=== PATIENT | male | born 1975 | race Caucasian/White ===

== ENCOUNTER 2018-08-21 18:08 | Inpatient (IN) ==
[2018-08-21] MEDS ORDERED: 0.9 % Sodium Chloride 1,000 ML IVC ONE (18:45)
[2018-08-21] MEDS ORDERED: *HR* FentaNYL (PF) 100 MCG/2 ML VIAL IVP ONE ×2 (18:47→22:55)
[2018-08-21] MEDS ORDERED: Ondansetron ODT 4 MG TAB.RAPDIS SL ONE (18:47)
--- NOTE | 2018-08-21 18:53 | Emergency Department Note ---
Addendum entered and electronically signed by Marlon Jiang DO 08/22/18 01:57: I examined this patient and my medical decision-making was reviewed with the Abhishek mitchell Physician. I agree with the documented findings, disposition and treatment plan as described except to the extent set forth below. Findings consistent with chronic pancreatitis. Suspect underlying etiology as triglyceridemia. Patient will be admitted for triglyceride management, pain con trol. IV fluids were established. Original Note: Disposition Clinical Impression: Abdominal pain Qualifiers: Abdominal location: right upper quadrant Qualified Code(s): R10.11 - Right upper quadrant pain Disposition: Still a Patient Condition: Fair Forms: ED Satisfaction Letter, Work/School Release General Adult HPI - General Chief complaint: ED Abdominal Pain Stated complaint: pancreatitis Time Seen by Provider: 08/21/18 18:37 Source: patient, family Limitations: no limitations Nursing Notes Reviewed: Yes Vital Signs Reviewed: Yes - History of Present Illness HPI Narrative: Patient is a 42-year-old male presenting to [facility] ED for a 5 hour history of severe abdominal pain radiating to the back and chest. Patient states that he has had similar episodes in the past which were attributed to pancreatitis which led to a cholecystectomy 6 months ago. Patient states that he has hypertriglyceridemia of over 580 for which he began taking fenofibrate this week. Patient states that his pain is 10 out of 10 and sharp and stabbing in nature. Patient states that he feels extremely nauseated. Onset (ago): hour(s) Location: abdomen Radiation: other (Radiation to the chest and right side of back) Pain Severity: severe Pain Scale: 10 Quality: stabbing, sharp Consistency: constant Improves with: nothing Worsens with: nothing Associated symptoms: Reports: chest pain, cough, fever/chills, nausea/vomiting. Denies: headaches, shortness of breath - Related Data Allergies Allergy/AdvReac Type Severity Reaction Status Date / Time prochlorperazine Allergy See Verified 08/21/18 18:25 [From Compazine] Comments All systems ED: reviewed and negative except as stated. Review of Systems: As Per HPI Constitutional: Reports: fever, chills Eyes: Denies: vision change ENT ED: Denies: throat pain, dysphagia Cardiovascular: Denies: chest pain Respiratory: Denies: dyspnea Gastrointestinal: Reports: abdominal pain, nausea. Denies: vomiting, hematochezia Genitourinary: Denies: hematuria Musculoskeletal: Reports: back pain Neurological: Denies: headache, numbness, paresthesias Physical Exam - General Limitations: no limitations General appearance: alert, in distress - Head Head exam: atraumatic, normocephalic, normal inspection - Eye Eye exam: Present: normal appearance, PERRL, EOMI. Absent: scleral icterus, conjunctival injection - Chest Chest inspection: Present: normal inspection, symmetric chest wall rise - Respiratory Respiratory exam: Present: normal lung sounds bilaterally. Absent: respiratory distress, wheezes, stridor, accessory muscle use, prolonged expiratory phase - Cardiovascular Cardiovascular exam: Present: regular rate, normal rhythm, normal heart sounds, +S1, +S2. Absent: JVD, +S3, +S4 - Abdominal Exam Abdominal exam: Present: soft, tenderness, normal bowel sounds. Absent: distention, guarding, rebound, rigidity Abdominal tenderness: Present: RUQ, severe - Back Exam Back exam: Present: normal inspection, tenderness, CVA tenderness (R). Absent: CVA tenderness (L) - Neurological Exam Neurological exam: Present: alert, oriented X3 - Psychiatric Psychiatric exam: Present: anxious - Skin Skin exam: Present: warm, intact, normal color, diaphoresis. Absent: cyanosis Course Course Narrative: Patient history, review of systems, physical exam is concerning for abdominal pathology versus cardiac pulmonary process. EKG/old EKG, chest x-ray, CT abdomen and pelvis as well as abdominal labs will be performed to assess for potential underlying pathology. -Patient will be given 8 mg Zofran ODT, 50 g of fentanyl, and 1 L of fluids for the management of symptoms. Vital Signs Temperature 97.6 F 08/21/18 18:24 Pulse Rate 67 08/21/18 18:24 Respiratory Rate 18 08/21/18 18:24 Blood Pressure 146/88 08/21/18 18:24 O2 Sat by Pulse Oximetry 96 08/21/18 18:24 Temperature 97.6 F 08/21/18 18:24 Pulse Rate 67 08/21/18 18:24 Respiratory Rate 18 08/21/18 18:24 Blood Pressure 146/88 08/21/18 18:24 O2 Sat by Pulse Oximetry 96 08/21/18 18:24 Oxygen Delivery Oxygen Delivery Room Air Medical Decision Making - MDM Narrative Medical decision making narrative: Patient will be transferred to the care of overnight ED physician staff. Patient is hemodynamically stable at the time of transfer. - Lab Data Result diagrams: 08/21/18 19:05 08/21/18 19:05
[2018-08-21 19:23] LABS: Basophils % 0.5 %; Eosinophils # 0.4 K/mcL (0.0-0.6); Eosinophils % 4.8 %; Hematocrit 46.7 % (37.5-50.1); Hemoglobin 15.9 g/dL (12.9-16.9); Immature Granulocytes % 0.6 % (0-4); Lymphocytes # 1.8 K/mcL (0.6-4.6); Mean Corpuscular Hemoglobin 28.9 pg (28.0-33.3); Mean Corpuscular Volume 84.8 fL (83.0-100.0); Mean Platelet Volume 10.4 fL (9.4-12.4); Monocytes # 0.7 K/mcL (0.0-1.3); Monocytes % 8.5 %; Neutrophils # 5.4 K/mcL (1.6-8.9); Platelet Count 216 K/mcL (140-400); Red Blood Count 5.51 M/mcL (4.19-5.50); Red Cell Distribution Width 13.2 % (11.5-14.5); Segmented Neutrophils % 64.6 %
[2018-08-21 19:32] LABS: Bilirubin,Urine Negative (Negative); Blood,Urine Negative (Negative); Clarity,Urine Clear (Clear); Color,Urine Yellow (Yellow); Glucose,Urine (UA) Normal (Normal); Ketones,Urine Negative (Negative); Leukocyte Esterase,Urine Negative (Negative); Nitrite,Urine Negative (Negative); PH,Urine 6.5 pH Units (5.0-8.0); Protein,Urine Negative (Neg-Trace); Specific Gravity,Urine 1.019 (1.010-1.025); Urobilinogen,Urine Normal (Normal)
[2018-08-21 19:37] LABS: Activated Partial Thrombo Time 30.5 Seconds (26.0-36.0)
[2018-08-21 19:39] LABS: Troponin I < 0.03 ng/mL (< 0.04)
[2018-08-21 19:40] LABS: Alanine Aminotransferase 34 Units/L (7-52); Albumin 4.3 g/dL (3.5-5.7); Albumin/Globulin Ratio 1.7 (1.1-2.2); Alkaline Phosphatase 66 Units/L (34-104); Amylase 162 Units/L (29-103); Aspartate Amino Transferase 28 Units/L (13-39); BUN/Creatinine Ratio 15 (6-26); Bilirubin,Indirect 0.5 mg/dL (0.0-1.2); Bilirubin,Total 0.5 mg/dL (0.3-1.0); Blood Urea Nitrogen 19 mg/dL (6-20); Calcium 8.9 mg/dL (8.6-10.3); Carbon Dioxide 26 mEq/L (23-29); Chloride 103 mEq/L (98-107); Globulin 2.5 g/dL (2.4-3.5); Glucose 102 mg/dL (70-105); Lipase 544 Units/L (11-82); Osmolality,Calculated 286 (280-300); Potassium 3.8 mEq/L (3.5-5.1); Sodium 137 mEq/L (136-145); Total Protein 6.8 g/dL (6.4-8.9); eGFR For Non-African Americans > 60 (> 60)
[2018-08-21] MEDS ORDERED: *HR* OxyCODONE/APAP 5/325 TABLET PO ONE (20:39)
[2018-08-21] MEDS ORDERED: *HR* HYDROmorphone (PF) 1 MG/ML SYRINGE IVP ONE (21:19)
[2018-08-21] MEDS ORDERED: Ringers Solution, Lactated 1,000 ML ONE (21:22)
[2018-08-21] MEDS ORDERED: Ringers Solution, Lactated 1,000 ML IVC SCH (21:30)
[2018-08-21 21:37] LABS: Cholesterol 195 mg/dL (< 200); HDL Cholesterol 28 mg/dL (40-59); Triglycerides 755 mg/dL (< 150)
[2018-08-21] MEDS ORDERED: *HR* Dextrose 50 % in Water (Syg) 50 ML SYRINGE IVP PRN (22:31)
[2018-08-21] MEDS ORDERED: Acetaminophen 325 MG TABLET PO PRN (22:36)
[2018-08-21] MEDS ORDERED: Naloxone 0.4 MG/ML INJ IVP PRN (22:36)
[2018-08-21] MEDS ORDERED: Ketorolac 30 MG/ML VIAL IVP PRN (22:36)
[2018-08-21] MEDS ORDERED: D5% in 0.9% NACL 1,000 ML IVC SCH (22:45)
[2018-08-21] MEDS ORDERED: Insulin Human Regular 100 UNIT in 0.9 % Sodium Chloride 100 ML IVC SCH (22:45)
--- NOTE | 2018-08-21 23:01 | Internal Med History&Physical ---
Date of Encounter: 08/21/18 Time of Encounter: 22:55 Internal Medicine - H&P: HPI Chief complaint: Abdominal pain Admitted From: Emergency Dept Plans for Post Hospital Care: Home History of present illness: Mr. Taylor is a 42 year old male with history of hypertension, hypertriglyceridemia, asthma, GERD, anxiety, who presented to the ED complaining of epigastric abdominal pain with radiation to his back that started about 6 hours ago. He says he is doing well up until about half hour before he was about to clock out for his shift and when he started experiencing sudden onset of epigastric abdominal pain with associated nausea. He decided to come to the ED to get evaluated were CT abdomen and pelvis was done and showed acute pancreatitis. The patient was also noted to have elevated lipase. His triglycerides came back elevated at 755. The patient only socially drinks. About 6 months ago he had his gallbladder removed at [place], [place] after he has had multiple episodes of acute pancreatitis the past year. It was suspected that gallbladder sludge may have been causing this and his gallbladder was e lectively removed. He has not had any episodes of pancreatitis the past 6 months. He tells me no one has told him that his high triglycerides was high at the time of any of the acute pancreatitis episodes. The patient during his last episode of acute pancreatitis was told to stop his fenofibrate as there was a worry that this may have been causing his acute pancreatitis as well. He has not taken his fenofibrate the last 6 months up until about this week when his girlfriend who is a nurse told him to retake it as on routine labs done by his PCP last week showed that his triglycerides were in the 500s. Other laboratory workup in the ED were unremarkable. Vitals were stable. His pain was better controlled last time I was evaluating the patient as he was given fentanyl and Dilaudid. He was also given IV fluids and IV Zofran. Past Med Surg Social Fam HX - Past Medical History Medical history: asthma, hyperlipidemia, hypertension Additional medical history: CPAP @ [facility] - Social History Smoking Status: Never smoker Smokeless Tobacco Status: No Alcohol use: none Drug use: none Internal Medicine - H&P: Meds ALPRAZolam [Xanax 0.5 MG Tablet] 0.5 mg PO BID 08/21/18 [History] Acetaminophen/Butalbital/Caffe [Fioricet] 1 tab PO TID PRN 08/21/18 [History] Albuterol Neb [Proventil Neb] 2.5 mg IH QID PRN 08/21/18 [History] Albuterol Sulfate [Proair Hfa] 2 puff IH Q4H PRN 08/21/18 [History] Allopurinol [Zyloprim] 300 mg PO DAILY 08/21/18 [History] Fenofibrate Nanocrystallized [Triglide] 160 mg PO DAILY 08/21/18 [History] Loratadine [Allergy Relief] 10 mg PO DAILY 08/21/18 [History] Meloxicam [Mobic] 7.5 mg PO BID 08/21/18 [History] Metoprolol Succinate 200 mg PO DAILY 08/21/18 [History] Montelukast [Singulair] 10 mg PO DAILY 08/21/18 [History] Omeprazole [PriLOSEC] 20 mg PO DAILY 08/21/18 [History] Testosterone Cypionate 200 mg IM QWEEK 08/21/18 [History] Tizanidine HCl 4 mg PO HS 08/21/18 [History] Topiramate [Topamax] 25 mg PO BID 08/21/18 [History] Triamterene/HCTZ 37.5/25mg [Dyazide] 1 tab PO DAILY 08/21/18 [History] Allergy/AdvReac Type Severity Reaction Status Date / Time prochlorperazine Allergy See Verified 08/21/18 18:25 [From Compazine] Comments All Systems PM: A 10-system review of systems was performed and is negative for pertinent findings except as documented above in the HPI. Review of systems: All systems reviewed and negative except as mentioned above - Constitutional Vitals: Temp Pulse Resp BP Pulse Ox 97.6 F 70 20 134/99 94 08/21/18 19:34 08/21/18 21:34 08/21/18 21:34 08/21/18 21:34 08/21/18 21:34 Exam: GEN: NAD HEENT: AT, NC, No cyanosis, oral mucosa is moist, No JVD Lymphatics: No lymphadenoapthy Eyes: Extrocular muscles intact, anicteric CVS:RRR. S1, S2, No m/r/g RESP: CTAB ABD: Obese tender to palpation in the epigastric area with no rebound tenderness. No masses felt. Positive bowel sounds. EXT: No edema, No rashes, 2+ DP NEURO: Nonfocal, CN II-XII intact, No focal motor or sensory deficits Psych: Cooperative, Not anxious or depressed Internal Med - H&P Results - Labs CBC & Chem 7: 08/21/18 19:05 08/21/18 19:05 Labs: Short CBC 08/21/18 Range/Units 19:05 WBC 8.3 (4.3-11.1) K/mcL Hgb 15.9 (12.9-16.9) g/dL Hct 46.7 (37.5-50.1) % Plt Count 216 (140-400) K/mcL Neutrophils # 5.4 (1.6-8.9) K/mcL BMP 08/21/18 19:05 Sodium 137 Potassium 3.8 Chloride 103 Carbon Dioxide 26 BUN 19 Creatinine 1.29 Glucose 102 Calcium 8.9 Cardiac Enzymes 08/21/18 Range/Units 19:05 Troponin I < 0.03 (< 0.04) ng/mL Liver Function 08/21/18 Range/Units 19:05 Total Bilirubin 0.5 (0.3-1.0) mg/dL Direct Bilirubin 0.0 (0.0-0.2) mg/dL AST 28 (13-39) Units/L ALT 34 (7-52) Units/L Alkaline Phosphatase 66 (34-104) Units/L Albumin 4.3 (3.5-5.7) g/dL Urine 08/21/18 Range/Units 19:17 Urine Color Yellow (Yellow) Urine Clarity Clear (Clear) Urine pH 6.5 (5.0-8.0) pH Units Ur Specific [place] 1.019 (1.010-1.025) Urine Protein Negative (Neg-Trace) mg/dL Urine Glucose (UA) Normal (Normal) mg/dL - Impressions ITS Impressions Abdomen/Pelvis CT 08/21/18 18:45 IMPRESSION: Findings consistent with acute pancreatitis. D/ / Reji Galindo MD / Reji Galindo MD Interpreting Provider: Reji Galindo MD Chest X-Ray 08/21/18 18:46 IMPRESSION: No acute process. D/ / Wu Madera MD / Wu Madera MD Interpreting Provider: Wu Madera MD - Assessment and plan (1) Acute pancreatitis Current Visit: Yes Status: Acute Assessment and plan: Likely due to hypertriglyceridemia. We will admit the patient and put him on pain control. Nothing by mouth. We will start him on IV constant insulin drip. We will also place him on normal saline with dextrose. We will check another lipid panel in about 12 hours and his triglycerides are less than 500 we can possibly stop the IV insulin and possibly start him on a diet as tolerated. I h ave resumed his fenofibrate. I wonder if the patient's previous pancreatitis episodes were likely due to hypertriglyceridemia as well. Qualifiers: Pancreatitis type: other Acute pancreatitis complication: unspecified Qualified Code(s): K85.80 - Other acute pancreatitis without necrosis or infection (2) Hypertriglyceridemia Current Visit: Yes Status: Acute Assessment and plan: Plan is as above. I have resumed the patient's fenofibrate. We will try to lower his high triglycerides level faster with IV insulin for now given his acute pancreatitis. Repeat lipid panel tomorrow morning. (3) HTN (hypertension) Current Visit: Yes Status: Acute Assessment and plan: Resume home antihypertensives Qualifiers: Hypertension type: essential hypertension Qualified Code(s): I10 - Essential (primary) hypertension (4) Anxiety Current Visit: Yes Status: Acute Assessment and plan: Resume all medications (5) GERD (gastroesophageal reflux disease) Current Visit: Yes Status: Acute Assessment and plan: Resume home medications Qualifiers: Esophagitis presence: without esophagitis Qualified Code(s): K21.9 - Gastro-esophageal reflux disease without esophagitis (6) DVT prophylaxis Current Visit: Yes Status: Acute Assessment and plan: Heparin subcutaneous - Time Spent With Patient Total time spent is greater than 50% in coordination of care (as documented) at patient's floor/unit and/or counseling patient:
[2018-08-22] MEDS ORDERED: *HR* FentaNYL (PF) 100 MCG/2 ML VIAL IVP ONE (03:26)
[2018-08-22] MEDS ORDERED: D5% in 0.9% NACL 1,000 ML IVC SCH ×2 (04:30→08:00)
[2018-08-22 04:42] LABS: Basophils # 0.1 K/mcL (0.0-0.2); Basophils % 0.5 %; Eosinophils # 0.5 K/mcL (0.0-0.6); Eosinophils % 4.9 %; Hematocrit 44.7 % (37.5-50.1); Hemoglobin 15.5 g/dL (12.9-16.9); Immature Granulocytes % 0.4 % (0-4); Lymphocytes # 2.9 K/mcL (0.6-4.6); Lymphocytes % 31.3 %; Mean Corpuscular HGB Conc 34.7 g/dL (31.6-35.5); Mean Corpuscular Hemoglobin 29.6 pg (28.0-33.3); Mean Corpuscular Volume 85.3 fL (83.0-100.0); Mean Platelet Volume 10.4 fL (9.4-12.4); Monocytes % 10.3 %; Neutrophils # 4.9 K/mcL (1.6-8.9); Platelet Count 208 K/mcL (140-400); Red Blood Count 5.24 M/mcL (4.19-5.50); Red Cell Distribution Width 13.2 % (11.5-14.5); Segmented Neutrophils % 52.6 %
[2018-08-22 04:59] LABS: BUN/Creatinine Ratio 16 (6-26); Blood Urea Nitrogen 16 mg/dL (6-20); Calcium 8.3 mg/dL (8.6-10.3); Carbon Dioxide 27 mEq/L (23-29); Chloride 105 mEq/L (98-107); Glucose 72 mg/dL (70-105); Magnesium 1.8 mg/dL (1.6-2.6); Osmolality,Calculated 286 (280-300); Sodium 138 mEq/L (136-145); eGFR For Non-African Americans > 60 (> 60)
[2018-08-22] MEDS: *HR* Heparin 5,000 UNIT/ML VIAL SQ SCH ×3 (06:04→21:04)
[2018-08-22] MEDS: *HR* FentaNYL (PF) 100 MCG/2 ML VIAL IVP PRN ×8 (06:05→23:06)
[2018-08-22] MEDS ORDERED: Potassium Chloride 40 MEQ, Lidocaine 1% 2 ML in D5% in Water 500 ML IVPB ONE (08:42)
[2018-08-22] MEDS ORDERED: 0.9 % Sodium Chloride 1,000 ML IVC SCH (08:45)
--- NOTE | 2018-08-22 08:47 | Internal Med Progress Note ---
Hospitalist Progress Note - Encounter Date of Encounter: 08/22/18 Time of Encounter: 08:43 - Subjective Interval History: Seen examined at bedside today no acute changes overnight. Continuing to report abdominal discomfort as well as nausea. Discussed plan of care. - Exam Vitals: Temp Pulse Resp BP Pulse Ox 97.8 F 66 17 139/67 93 08/22/18 06:35 08/22/18 06:35 08/22/18 06:35 08/22/18 06:35 08/22/18 06:35 Exam: GEN: NAD HEENT: AT, NC, No cyanosis, oral mucosa is moist, No JVD Lymphatics: No lymphadenoapthy Eyes: Extrocular muscles intact, anicteric CVS:RRR. S1, S2, No m/r/g RESP: CTAB ABD: Obese, tender to palpation in the epigastric area and RUQ without rebound tenderness. No masses felt. Positive bowel sounds. EXT: No edema, No rashes, 2+ DP NEURO: Nonfocal, CN II-XII intact, No focal motor or sensory deficits Psych: Cooperative, Not anxious or depressed - Assessment and Plan (1) Acute pancreatitis Current Visit: Yes Status: Acute Assessment and Plan: Likely due to hypertriglyceridemia Was placed on IV insulin drip yesterday to help reduce triglycerides This is been discontinued this morning Repeat lipid panel pending Remain nothing by mouth Continue IV fluid 0.9% normal saline at 200 mL per hour 1 L and then 100 mL per hour 2 L Replete potassium as necessary Continue to treat pain with fentanyl (2) Hypertriglyceridemia Current Visit: Yes Status: Acute Assessment and Plan: Long-standing history of hypertriglyceridemia Reports that he has not been taking his fenofibrate at the recommendations of his PCP but this has recently been restarted after his PCP noticed his triglycerides were worsening This likely resulted in pancreatitis episode Resume fenofibrate and start simvastatin first dose now IV insulin drip was implemented yesterday to help decrease triglycerides DC IV insulin drip today Start 0.9 normal saline and rehydrate Remain nothing by mouth for pancreatitis Repeat lipid panel this morning (3) HTN (hypertension) Current Visit: Yes Status: Acute Assessment and Plan: Resume home anti-HTN meds (4) Anxiety Current Visit: Yes Status: Acute Assessment and Plan: Resume anxiolytics (5) GERD (gastroesophageal reflux disease) Current Visit: Yes Status: Acute Assessment and Plan: Resume GERD medications (6) DVT prophylaxis Current Visit: Yes Status: Acute Assessment and Plan: Continue Heparin subcutaneous - Time Spent with Patient Total time spent is greater than 50% in coordination of care (as documented) at patient's floor/unit and/or counseling patient: less than 15 minutes Plan of Care Discussed with: patient Internal Medicine: Result - Labs CBC & Chem 7: 08/22/18 03:55 08/22/18 03:55 Labs: Short CBC 08/21/18 08/22/18 Range/Units 19:05 03:55 WBC 8.3 9.2 (4.3-11.1) K/mcL Hgb 15.9 15.5 (12.9-16.9) g/dL Hct 46.7 44.7 (37.5-50.1) % Plt Count 216 208 (140-400) K/mcL Neutrophils # 5.4 4.9 (1.6-8.9) K/mcL BMP 08/21/18 08/22/18 19:05 03:55 Sodium 137 138 Potassium 3.8 3.0 L Chloride 103 105 Carbon Dioxide 26 27 BUN 19 16 Creatinine 1.29 0.99 Glucose 102 72 Calcium 8.9 8.3 L Cardiac Enzymes 08/21/18 Range/Units 19:05 Troponin I < 0.03 (< 0.04) ng/mL Liver Function 08/21/18 Range/Units 19:05 Total Bilirubin 0.5 (0.3-1.0) mg/dL Direct Bilirubin 0.0 (0.0-0.2) mg/dL AST 28 (13-39) Units/L ALT 34 (7-52) Units/L Alkaline Phosphatase 66 (34-104) Units/L Albumin 4.3 (3.5-5.7) g/dL Urine 08/21/18 Range/Units 19:17 Urine Color Yellow (Yellow) Urine Clarity Clear (Clear) Urine pH 6.5 (5.0-8.0) pH Units Ur Specific [place] 1.019 (1.010-1.025) Urine Protein Negative (Neg-Trace) mg/dL Urine Glucose (UA) Normal (Normal) mg/dL - ABG Interpretation ABG results: PT/INR, D-dimer PT 11.0 Seconds (9.4-12.1) 08/21/18 19:05 - Impressions Impressions Abdomen/Pelvis CT 08/21/18 18:45 IMPRESSION: Findings consistent with acute pancreatitis. D/ / Reji Galindo MD / Reji Galindo MD Interpreting Provider: Reji Galindo MD Chest X-Ray 08/21/18 18:46 IMPRESSION: No acute process. D/ / Wu Madera MD / Wu Madera MD Interpreting Provider: Wu Madera MD Consult Discharge Plan - Plan Referrals: Jj Alcantar DO [Primary Care Provider] - (1) Acute pancreatitis Qualifiers: Pancreatitis type: other Acute pancreatitis complication: unspecified Qualified Code(s): K85.80 - Other acute pancreatitis without necrosis or infection (3) HTN (hypertension) Qualifiers: Hypertension type: essential hypertension Qualified Code(s): I10 - Essential (primary) hypertension (5) GERD (gastroesophageal reflux disease) Qualifiers: Esophagitis presence: without esophagitis Qualified Code(s): K21.9 - Gastro- esophageal reflux disease without esophagitis
[2018-08-22 09:48] LABS: Lipase 98 Units/L (11-82); Triglycerides 525 mg/dL (< 150)
[2018-08-22] MEDS: 0.9 % Sodium Chloride 1,000 ML IVC SCH ×2 (11:50→18:49)
[2018-08-22] MEDS: Loratadine 10 MG TABLET PO SCH (14:20)
[2018-08-22] MEDS: Metoprolol XL (24 HR) Succ 50 MG TAB.ER.24H PO SCH (14:20)
[2018-08-22] MEDS: Fenofibrate 54 MG TABLET PO SCH (14:20)
[2018-08-22] MEDS: ALPRAZolam 0.5 MG TABLET PO SCH ×2 (14:20→20:59)
[2018-08-22] MEDS: Topiramate 25 MG TABLET PO SCH ×2 (14:20→20:59)
[2018-08-22] MEDS: tiZANidine 4 MG TABLET PO SCH (21:00)
[2018-08-22] MEDS: Ondansetron 4 MG/2 ML VIAL IVP PRN (22:00)
[2018-08-23] MEDS: *HR* FentaNYL (PF) 100 MCG/2 ML VIAL IVP PRN ×9 (01:30→23:16)
[2018-08-23] MEDS: *HR* Heparin 5,000 UNIT/ML VIAL SQ SCH ×3 (05:17→21:00)
[2018-08-23 05:27] LABS: Chol/HDL Ratio 6.7 (0-4.9); Cholesterol 174 mg/dL (< 200); HDL Cholesterol 26 mg/dL (40-59); Triglycerides 637 mg/dL (< 150)
[2018-08-23 08:26] LABS: Basophils % 0.4 %; Eosinophils # 0.3 K/mcL (0.0-0.6); Eosinophils % 7.1 %; Hematocrit 44.6 % (37.5-50.1); Hemoglobin 14.9 g/dL (12.9-16.9); Immature Granulocytes % 1.1 % (0-4); Lymphocytes # 1.8 K/mcL (0.6-4.6); Lymphocytes % 38.4 %; Mean Corpuscular HGB Conc 33.4 g/dL (31.6-35.5); Mean Corpuscular Hemoglobin 29.5 pg (28.0-33.3); Mean Corpuscular Volume 88.3 fL (83.0-100.0); Mean Platelet Volume 10.4 fL (9.4-12.4); Monocytes # 0.4 K/mcL (0.0-1.3); Monocytes % 8.8 %; Neutrophils # 2.1 K/mcL (1.6-8.9); Platelet Count 158 K/mcL (140-400); Red Blood Count 5.05 M/mcL (4.19-5.50); Red Cell Distribution Width 13.3 % (11.5-14.5); Segmented Neutrophils % 44.2 %
[2018-08-23 08:50] LABS: BUN/Creatinine Ratio 9 (6-26); Blood Urea Nitrogen 9 mg/dL (6-20); Calcium 8.2 mg/dL (8.6-10.3); Carbon Dioxide 30 mEq/L (23-29); Chloride 104 mEq/L (98-107); Glucose 100 mg/dL (70-105); Osmolality,Calculated 285 (280-300); Potassium 4.2 mEq/L (3.5-5.1); Sodium 138 mEq/L (136-145); eGFR For Non-African Americans > 60 (> 60)
[2018-08-23] MEDS ORDERED: 0.9 % Sodium Chloride 1,000 ML ONE (08:55)
--- NOTE | 2018-08-23 08:58 | Internal Med Progress Note ---
Hospitalist Progress Note - Encounter Date of Encounter: 08/23/18 Time of Encounter: 08:56 - Subjective Interval History: Seen examined at bedside. He is reporting an increase in abdominal pain overnight as well as an increase in nausea. Discussed POC including obtaining a liver/pancreatic US and continued need for NPO for GI rest. Patient verbalizes understanding. - Exam Vitals: Temp Pulse Resp BP Pulse Ox 97.9 F 57 17 125/74 95 08/23/18 07:22 08/23/18 07:22 08/23/18 07:22 08/23/18 07:22 08/23/18 07:22 Exam: GEN: NAD HEENT: AT, NC, No cyanosis, oral mucosa is moist, No JVD Lymphatics: No lymphadenoapthy Eyes: Extrocular muscles intact, anicteric, PERRLA CVS:RRR. S1, S2, No murmurs, rubs, or gallops RESP: CTAB ABD: Obese, tender to palpation in the epigastric area and RUQ with radiation to the right back. He is without rebound tenderness. No masses felt. Positive bowel sounds. EXT: No edema, No rashes, 2+ DP NEURO: Nonfocal, CN II-XII intact, No focal motor or sensory deficits Psych: Cooperative, Not anxious or depressed - Assessment and Plan (1) Acute pancreatitis Current Visit: Yes Status: Acute Assessment and Plan: Likely due to hypertriglyceridemia Was placed on IV insulin drip yesterday to help reduce triglycerides This is been discontinued this morning Repeat lipid panel pending Remain nothing by mouth Continue IV fluid 0.9% normal saline at 200 mL per hour 1 L and then 100 mL per hour 2 L Replete potassium as necessary Continue to treat pain with fentanyl 08/23/18--abdominal pain and nausea is persistent. Clinically however, the patient remained stable. Continue normal saline at 150 mL per hour. Continue NPO status. Continue treatment pain with fentanyl. I will obtain a liver and pancreatic ultrasound this afternoon for further evaluation. Additionally, I have ordered a hemoglobin A1c. Continue to treat with antiemetics for nausea. Repeat labs in the morning (2) Hypertriglyceridemia Current Visit: Yes Status: Acute Assessment and Plan: Hypertriglyceridemia persists This is in the setting of acute pancreatitis Repeat labs in the morning Continue fenofibrate and atorvastatin (3) HTN (hypertension) Current Visit: Yes Status: Acute Assessment and Plan: Controlled, continue anti-HTN meds (4) Anxiety Current Visit: Yes Status: Acute Assessment and Plan: Without anxiety at this time, continue insulin (5) GERD (gastroesophageal reflux disease) Current Visit: Yes Status: Acute Assessment and Plan: Resume GERD medications (6) DVT prophylaxis Current Visit: Yes Status: Acute Assessment and Plan: Continue Heparin subcutaneous - Time Spent with Patient Total time spent is greater than 50% in coordination of care (as documented) at patient's floor/unit and/or counseling patient: less than 15 minutes Plan of Care Discussed with: patient Internal Medicine: Result - Labs CBC & Chem 7: 08/23/18 07:55 08/23/18 07:55 Labs: Short CBC 08/23/18 Range/Units 07:55 WBC 4.8 (4.3-11.1) K/mcL Hgb 14.9 (12.9-16.9) g/dL Hct 44.6 (37.5-50.1) % Plt Count 158 (140-400) K/mcL Neutrophils # 2.1 (1.6-8.9) K/mcL BMP 08/23/18 07:55 Sodium 138 Potassium 4.2 Chloride 104 Carbon Dioxide 30 H BUN 9 Creatinine 1.05 Glucose 100 Calcium 8.2 L - ABG Interpretation ABG results: PT/INR, D-dimer PT 11.0 Seconds (9.4-12.1) 08/21/18 19:05 Consult Discharge Plan - Plan Referrals: Jj Alcantar, [Primary Care Provider] - (1) Acute pancreatitis Qualifiers: Pancreatitis type: other Acute pancreatitis complication: unspecified Qualified Code(s): K85.80 - Other acute pancreatitis without necrosis or infection (3) HTN (hypertension) Qualifiers: Hypertension type: essential hypertension Qualified Code(s): I10 - Essential (primary) hypertension (5) GERD (gastroesophageal reflux disease) Qualifiers: Esophagitis presence: without esophagitis Qualified Code(s): K21.9 - Gastro- esophageal reflux disease without esophagitis
[2018-08-23] MEDS: Fenofibrate 54 MG TABLET PO SCH (09:02)
[2018-08-23] MEDS: ALPRAZolam 0.5 MG TABLET PO SCH ×2 (09:02→20:59)
[2018-08-23] MEDS: 0.9 % Sodium Chloride 1,000 ML IVC SCH ×2 (09:02→18:57)
[2018-08-23] MEDS: Metoprolol XL (24 HR) Succ 50 MG TAB.ER.24H PO SCH (09:03)
[2018-08-23] MEDS: Loratadine 10 MG TABLET PO SCH (09:03)
[2018-08-23] MEDS: Topiramate 25 MG TABLET PO SCH ×2 (09:05→20:59)
[2018-08-23 09:50] LABS: Estimated Average Glucose 105 mg/dl; Hemoglobin A1C 5.3 %
[2018-08-23] MEDS ORDERED: *HR* OxyCODONE Immed Rel 5 MG TABLET PO PRN (12:52)
[2018-08-23] MEDS: tiZANidine 4 MG TABLET PO SCH (20:59)
[2018-08-24] MEDS: 0.9 % Sodium Chloride 1,000 ML IVC SCH ×3 (01:46→23:10)
[2018-08-24] MEDS: *HR* FentaNYL (PF) 100 MCG/2 ML VIAL IVP PRN ×5 (01:47→11:08)
[2018-08-24] MEDS: tiZANidine 4 MG TABLET PO SCH ×2 (01:50→23:11)
[2018-08-24] MEDS: Ondansetron 4 MG/2 ML VIAL IVP PRN (02:28)
[2018-08-24 05:32] LABS: BUN/Creatinine Ratio 10 (6-26); Blood Urea Nitrogen 9 mg/dL (6-20); Calcium 8.7 mg/dL (8.6-10.3); Carbon Dioxide 27 mEq/L (23-29); Chloride 105 mEq/L (98-107); Glucose 95 mg/dL (70-105); Osmolality,Calculated 282 (280-300); Potassium 3.8 mEq/L (3.5-5.1); Sodium 137 mEq/L (136-145); eGFR For Non-African Americans > 60 (> 60)
[2018-08-24] MEDS: *HR* Heparin 5,000 UNIT/ML VIAL SQ SCH ×3 (06:28→21:15)
[2018-08-24] MEDS: Metoprolol XL (24 HR) Succ 50 MG TAB.ER.24H PO SCH (08:49)
[2018-08-24] MEDS: Fenofibrate 54 MG TABLET PO SCH (08:49)
[2018-08-24] MEDS: Topiramate 25 MG TABLET PO SCH ×2 (08:50→19:23)
[2018-08-24] MEDS: ALPRAZolam 0.5 MG TABLET PO SCH ×2 (08:52→21:15)
[2018-08-24] MEDS: Loratadine 10 MG TABLET PO SCH (08:52)
[2018-08-24] MEDS ORDERED: OXYCODONE Oral CONC 10 MG/0.5 ML ORAL.SYG SL PRN (13:32)
[2018-08-24] MEDS: OXYCODONE Oral CONC 10 MG/0.5 ML ORAL.SYG SL PRN ×2 (14:27→21:29)
--- NOTE | 2018-08-24 16:44 | Internal Med Progress Note ---
<Donita Goetz - Last Filed: 08/24/18 16:34> Hospitalist Progress Note - Encounter Date of Encounter: 08/24/18 Time of Encounter: 16:34 - Subjective Interval History: Pt seen and examined resting comfortably at bedside in no acute distress. Diet was advanced to clear liquids this morning. Pt reports no complaints. Denies fevers/chills, headache, vision changes, chest pain, SOB, abdominal pain, n/v/d, dysuria. Notes pain has been well controlled thus far on fentanyl q2hrs. However, advised pt we cant continue pt on fentanyl, so pt was ok with switching to SL oxycodone PRN. We will advance further to soft diet, and as long as pt tolerates, may d/c home tomorrow. - Exam Vitals: Temp Pulse Resp BP Pulse Ox 98.2 F 60 14 133/73 93 08/24/18 07:19 08/24/18 07:19 08/24/18 07:19 08/24/18 07:19 08/24/18 07:19 Exam: GEN: AOx3, NAD; resting comfortably in bed HEENT: Atraumatic, normocephalic; eomi; mucous membranes moist CARDIO: RRR, no murmurs, rubs, gallops RESP: ctab, no wheezes, rales, rhonchi ABD: mild ttp in epigastric region; soft, non-distended; no guarding, rebound tenderness, peritoneal signs NEURO: No focal deficits, CN 2 -12 intact EXT: no LE edema b/l - Assessment and Plan (1) Acute pancreatitis Current Visit: Yes Status: Acute Assessment and Plan: This is a 42y/o M with PMHx HTN, HLD, asthma, GERD, anxiety who presented to ED with epigastric abdominal pain which radiated to back, and nausea. Evaluated in ED. CT abd/pelvis indicated findings consistent with acute pancreatitis. Also noted to have elevated lipase, amylase, and hypertriglyceridemia. Pt only notes social drinking. PSHx = cholecystectomy Amylase - 162 on presentation Lipase - 544 on presentation Triglycerides - [address] abd/pelvis: Findings consistent with acute pancreatitis CXR: Negative for acute process Pt was started on IV fluids. Given Fentanyl and Dilaudid for pain control. Also given Zofran for nausea. Abd U/S: Fatty Infiltration of the Liver Advanced to clear liquids this morning PLAN: Cont IV Fluids Advance diet as tolerated Pain meds - SL oxycodone PRN Cont fenofibrate, statin, omeprazole PRN Zofran (2) Hypertriglyceridemia Current Visit: Yes Status: Acute Assessment and Plan: Hypertriglyceridemia persists but trending down Cont fenofibrate and atorvastatin (3) HTN (hypertension) Current Visit: Yes Status: Acute Assessment and Plan: BP = 133/73 this AM Cont Metoprolol (4) Anxiety Current Visit: Yes Status: Acute Assessment and Plan: Denies anxiety at this time (5) GERD (gastroesophageal reflux disease) Current Visit: Yes Status: Acute Assessment and Plan: Cont omeprazole Zofran PRN for nausea (6) DVT prophylaxis Current Visit: Yes Status: Acute Assessment and Plan: Cont Heparin SQ DVT Prophylaxis: Heparin SQ TID - Time Spent with Patient Total time spent is greater than 50% in coordination of care (as documented) at patient's floor/unit and/or counseling patient: less than 15 minutes Plan of Care Discussed with: patient Internal Medicine: Result - Labs CBC & Chem 7: 08/23/18 07:55 08/24/18 04:39 Labs: BMP 08/24/18 04:39 Sodium 137 Potassium 3.8 Chloride 105 Carbon Dioxide 27 BUN 9 Creatinine 0.90 Glucose 95 Calcium 8.7 - ABG Interpretation ABG results: PT/INR, D-dimer PT 11.0 Seconds (9.4-12.1) 08/21/18 19:05 Consult Discharge Plan - Plan Referrals: Jj Alcantar DO [Primary Care Provider] - <Quinten Stallworth - Last Filed: 08/24/18 17:13> Hospitalist Progress Note - Encounter Date of Encounter: 08/24/18 Time of Encounter: 17:09 - Exam Vitals: Temp Pulse Resp BP Pulse Ox 97.6 F 63 14 149/89 95 08/24/18 16:15 08/24/18 16:15 08/24/18 16:15 08/24/18 16:15 08/24/18 16:15 - Assessment and Plan (1) Acute pancreatitis Current Visit: Yes Status: Acute (2) Hypertriglyceridemia Current Visit: Yes Status: Acute (3) HTN (hypertension) Current Visit: Yes Status: Acute (4) Anxiety Current Visit: Yes Status: Acute (5) GERD (gastroesophageal reflux disease) Current Visit: Yes Status: Acute (6) DVT prophylaxis Current Visit: Yes Status: Acute - Time Spent with Patient Total time spent is greater than 50% in coordination of care (as documented) at patient's floor/unit and/or counseling patient: Internal Medicine: Result - Labs CBC & Chem 7: 08/23/18 07:55 08/24/18 04:39 Labs: BMP 08/24/18 04:39 Sodium 137 Potassium 3.8 Chloride 105 Carbon Dioxide 27 BUN 9 Creatinine 0.90 Glucose 95 Calcium 8.7 - ABG Interpretation ABG results: PT/INR, D-dimer PT 11.0 Seconds (9.4-12.1) 08/21/18 19:05 - Attending Attestation I saw evaluated and examined this patient and my medical decision-making was reviewed with the Resident Physician, Donita Goetz. I agree with the documented findings, disposition and treatment plan as described except to any changes set forth below. We independently had [id number] contact with the patient. Patient continues to have abdominal pain. He has been admitted for acute pancreatitis. This is a recurrent episode. Patient has previously been day diagnosed with pancreatitis and was told to stop statins. He developed pancreatitis again and he underwent cholecystectomy 6 months back. He denies alcohol abuse. He has been receiving intravenous fentanyl every 2 hours here. No radiation to the back. On exam, patient has mild epigastric tenderness. Bowel sounds are normal. Breath sounds are normal. S1 and S2 are normal. Acute pancreatitis: Patient does have hypertriglyceridemia which can cause pancreatitis. Continue TriCor. We will also consider starting niacin at the time of discharge. For now,triglyceride levels seem to be coming down. Lipase levels have also come down. Will start patient on clear liquid diet. Decrease IV fluids. Essential hypertension: Continue metoprolol. Gastroesophageal reflux disease: Continue omeprazole. Patient is also on Zofran for nausea. DVT prophylaxis with subcutaneous heparin. Moderate risk for complications. <SofySatyaedgardo - Last Filed: 08/24/18 16:34> (1) Acute pancreatitis Qualifiers: Pancreatitis type: other Acute pancreatitis complication: unspecified Quali fied Code(s): K85.80 - Other acute pancreatitis without necrosis or infection (3) HTN (hypertension) Qualifiers: Hypertension type: essential hypertension Qualified Code(s): I10 - Essential (primary) hypertension (5) GERD (gastroesophageal reflux disease) Qualifiers: Esophagitis presence: without esophagitis Qualified Code(s): K21.9 - Gastro- esophageal reflux disease without esophagitis <Quinten Stallworth - Last Filed: 08/24/18 17:13> (1) Acute pancreatitis Qualifiers: Pancreatitis type: other Acute pancreatitis complication: unspecified Qualified Code(s): K85.80 - Other acute pancreatitis without necrosis or infection (3) HTN (hypertension) Qualifiers: Hypertension type: essential hypertension Qualified Code(s): I10 - Essential (primary) hypertension (5) GERD (gastroesophageal reflux disease) Qualifiers: Esophagitis presence: without esophagitis Qualified Code(s): K21.9 - Gastro- esophageal reflux disease without esophagitis
[2018-08-25 04:03] LABS: Basophils % 0.7 %; Eosinophils # 0.3 K/mcL (0.0-0.6); Eosinophils % 5.7 %; Hematocrit 44.8 % (37.5-50.1); Hemoglobin 15.5 g/dL (12.9-16.9); Immature Granulocytes % 0.7 % (0-4); Lymphocytes # 2.1 K/mcL (0.6-4.6); Lymphocytes % 38.1 %; Mean Corpuscular HGB Conc 34.6 g/dL (31.6-35.5); Mean Corpuscular Hemoglobin 29.4 pg (28.0-33.3); Mean Platelet Volume 10.7 fL (9.4-12.4); Monocytes # 0.5 K/mcL (0.0-1.3); Monocytes % 8.7 %; Neutrophils # 2.5 K/mcL (1.6-8.9); Platelet Count 185 K/mcL (140-400); Red Blood Count 5.27 M/mcL (4.19-5.50); Red Cell Distribution Width 13.1 % (11.5-14.5); Segmented Neutrophils % 46.1 %
[2018-08-25 04:17] LABS: BUN/Creatinine Ratio 10 (6-26); Blood Urea Nitrogen 9 mg/dL (6-20); Calcium 8.7 mg/dL (8.6-10.3); Carbon Dioxide 24 mEq/L (23-29); Chloride 105 mEq/L (98-107); Glucose 114 mg/dL (70-105); Osmolality,Calculated 284 (280-300); Potassium 3.6 mEq/L (3.5-5.1); Sodium 137 mEq/L (136-145); eGFR For Non-African Americans > 60 (> 60)
[2018-08-25] MEDS: *HR* Heparin 5,000 UNIT/ML VIAL SQ SCH (05:11)
[2018-08-25] MEDS: Fenofibrate 54 MG TABLET PO SCH (08:44)
[2018-08-25] MEDS: Metoprolol XL (24 HR) Succ 50 MG TAB.ER.24H PO SCH (08:44)
[2018-08-25] MEDS: ALPRAZolam 0.5 MG TABLET PO SCH (08:44)
[2018-08-25] MEDS: Loratadine 10 MG TABLET PO SCH (08:44)
[2018-08-25] MEDS: 0.9 % Sodium Chloride 1,000 ML IVC SCH (08:45)
[2018-08-25] MEDS: Topiramate 25 MG TABLET PO SCH (08:45)
[2018-08-25 10:05] VITALS: BP 131/77
--- NOTE | 2018-08-25 10:06 | Discharge Summary ---
<Donita Goetz - Last Filed: 08/25/18 12:35> - NOTES TO OUTPATIENT PROVIDER Notes to Outpatient Provider: Pt admitted for acute pancreatitis. Plan to discharge home today. Follow up with PCP in 2-3 days. D/C home on fenofibrate, Zocor, PRN Percocet. Encouraged lifestyle changes in regards to diet and exer cise. Pt noted hx of recurrent pancreatitis. Previously stopped statin. Will restart here and defer to PCP regarding continuation. Orders not resulted at time of discharge: Pending orders 08/21/18 18:45 ECG 12 lead ECG [ECG] Stat 08/26/18 04:00 Basic Metabolic Panel AM 0400 Date of Encounter: 08/25/18 Time of Encounter: 10:05 - Discharge Diagnosis (1) Acute pancreatitis Priority: Primary Status: Acute Qualifiers: Pancreatitis type: other Acute pancreatitis complication: unspecified Qualified Code(s): K85.80 - Other acute pancreatitis without necrosis or infection (2) Hypertriglyceridemia Priority: Secondary Status: Acute (3) HTN (hypertension) Priority: Secondary Status: Acute Qualifiers: Hypertension type: essential hypertension Qualified Code(s): I10 - Essential (primary) hypertension (4) Anxiety Priority: Secondary Status: Chronic (5) GERD (gastroesophageal reflux disease) Priority: Secondary Status: Acute Qualifiers: Esophagitis presence: without esophagitis Qualified Code(s): K21.9 - Gastro-esophageal reflux disease without esophagitis (6) DVT prophylaxis Priority: Secondary Status: Acute Hospital course: This is a 42y/o M with PMHx HTN, HLD, asthma, GERD, anxiety who presented to ED with epigastric abdominal pain which radiated to back, and nausea. Evaluated in ED. CT abd/pelvis indicated findings consistent with acute pancreatitis. Also noted to have elevated lipase, amylase, and hypertriglyceridemia. Pt only notes social drinking. PSHx = cholecystectomy Amylase - 162 on presentation Lipase - 544 on presentation Triglycerides - [address] abd/pelvis: Findings consistent with acute pancreatitis CXR: Negative for acute process Pt was started on IV fluids. Given Fentanyl and Dilaudid for pain control. Also given Zofran for nausea. Abd U/S: Fatty Infiltration of the Liver Pt's diet was advanced from npo to clear liquids to soft diet, and pt tolerated diet well, with only minimal tenderness to palpation in the epigastric region. Denied nausea, vomiting. Pt currently stable for discharge, vitals hemodynamically stable. Plan to discharge home. Discharge discussed with: patient, family - Time Spent with Patient Total time spent providing and/or coordinating discharge services: Less than 30 minutes - Discharge Medications Prescriptions: Oxycodone HCl/Acetaminophen [Percocet 5-325 mg Tablet] 1 each PO Q6HR 3 Days #12 tablet RX: Fenofibrate Nanocrystallized [Triglide] 160 mg PO DAILY 30 Days #30 tablet RX: Simvastatin [Zocor] 40 mg PO HS 30 Days #30 tablet Home Medications: RX: ALPRAZolam [Xanax 0.5 MG Tablet] 0.5 mg PO BID 08/21/18 [History] RX: Acetaminophen/Butalbital/Caffe [Fioricet] 1 tab PO TID PRN 08/21/18 [History] RX: Albuterol Neb [Proventil Neb] 2.5 mg IH QID PRN 08/21/18 [History] RX: Albuterol Sulfate [Proair Hfa] 2 puff IH Q4H PRN 08/21/18 [History] RX: Allopurinol [Zyloprim] 300 mg PO DAILY 08/21/18 [History] RX: Loratadine [Allergy Relief] 10 mg PO DAILY 08/21/18 [History] RX: Meloxicam [Mobic] 7.5 mg PO BID 08/21/18 [History] RX: Metoprolol Succinate 200 mg PO DAILY 08/21/18 [History] RX: Montelukast [Singulair] 10 mg PO DAILY 08/21/18 [History] RX: Omeprazole [PriLOSEC] 20 mg PO DAILY 08/21/18 [History] RX: Testosterone Cypionate 200 mg IM QWEEK 08/21/18 [History] RX: Tizanidine HCl 4 mg PO HS 08/21/18 [History] RX: Topiramate [Topamax] 25 mg PO BID 08/21/18 [History] RX: Triamterene/HCTZ 37.5/25mg [Dyazide] 1 tab PO DAILY 08/21/18 [History] Oxycodone HCl/Acetaminophen [Percocet 5-325 mg Tablet] 1 each PO Q6HR 3 Days #12 tablet 08/25/18 [Rx] RX: Fenofibrate Nanocrystallized [Triglide] 160 mg PO DAILY 30 Days #30 tablet 08/25/18 [Rx] RX: Simvastatin [Zocor] 40 mg PO HS 30 Days #30 tablet 08/25/18 [Rx] Allergies/Adverse Reactions: Allergy/AdvReac Type Severity Reaction Status Date / Time prochlorperazine Allergy See Verified 08/21/18 18:25 [From Compazine] Comments Date of admission: 08/21/18 22:33 Primary care physician: Jj Alcantar Discharging clinician: Donita Goetz Anticipated date of discharge: 08/25/18 - Constitutional Vitals: Temp Pulse Resp BP Pulse Ox 97.7 F 68 14 131/77 94 08/25/18 09:59 08/25/18 09:59 08/25/18 09:59 08/25/18 09:59 08/25/18 09:59 General appearance: Present: A&O X 3, pleasant, no acute distress, answers questions appropriately Exam: GEN: NAD; AOx3; resting comfortably in bed HEENT: Atraumatic, Normocephalic; EOMI; mucous membranes moist CARDIO: RRR, no murmurs, rubs, gallops RESP: CTAB, no wheezes, rales, rhonchi ABD: mild tenderness to palpation in epigastric region; Soft, non-distended, bowel sounds present EXT: No LE Edema B/L NEURO: CN 2 -12 intact; No focal deficits - Patient Status Disposition: Home, Self-Care Condition: Fair Functional capacity at discharge: independent ambulation Overall status at discharge: patient is progressing back to baseline - Discharge Instructions Instructions: Oxycodone/Acetaminophen (By mouth), Simvastatin (By mouth), Fenofibrate (By mouth), Pancreatitis (DC) Follow Up With: Jj Alcantar DO [Primary Care Provider] - - Diet and Activity Activity: increase activity as tolerated Diet: low fat, low cholesterol <Quinten Stallworth - Last Filed: 08/25/18 13:36> Orders not resulted at time of discharge: Pending orders 08/21/18 18:45 ECG 12 lead ECG [ECG] Stat 08/26/18 04:00 Basic Metabolic Panel AM 0400 Date of Encounter: 08/25/18 Time of Encounter: 13:33 - Discharge Diagnosis (1) Acute pancreatitis Status: Acute Qualifiers: Pancreatitis type: other Acute pancreatitis complication: unspecified Qualified Code(s): K85.80 - Other acute pancreatitis without necrosis or infection (2) Hypertriglyceridemia Status: Acute (3) HTN (hypertension) Status: Acute Qualifiers: Hypertension type: essential hypertension Qualified Code(s): I10 - Essential (primary) hypertension (4) Anxiety Status: Chronic (5) GERD (gastroesophageal reflux disease) Status: Acute Qualifiers: Esophagitis presence: without esophagitis Qualified Code(s): K21.9 - Gastro-esophageal reflux disease without esophagitis (6) DVT prophylaxis Status: Acute Hospital course: Mr. Taylor is a 42 year old male - Time Spent with Patient Total time spent providing and/or coordinating discharge services: Less than 30 minutes (10 min) Date of admission: 08/21/18 22:33 Primary care physician: Jj Alcantar - Constitutional Vitals: Temp Pulse Resp BP Pulse Ox 97.7 F 68 14 131/77 94 08/25/18 09:59 08/25/18 09:59 08/25/18 09:59 08/25/18 09:59 08/25/18 09:59 - Attending Attestation I saw evaluated and examined this patient and my medical decision-making was reviewed with the Resident Physician, Donita Goetz. I agree with the documented findings, disposition and treatment plan as described except to any changes set forth below. We independently had [id number] contact with the patient. 42-year-old male patient was hospitalized here with a recurrent episode of pancreatitis. Patient has previously undergone cholecystectomy 6 months back. His lipase was elevated at 544 on presentation. Patient does have hypertriglyceridemia which is on the possible cause of pancreatitis. Patient had previously been stopped taken off statins as it was suspected as the causes for his pancreatitis with since then he has had recurrent episodes of pancreatitis. As his triglycerides remain elevated in the patient is taking TriCor, distended recommend resuming statin. Patient was kept nothing by mouth and treated with pain medications and IV fluids. His pain has slowly improved. He is now doing much better and is clinically stable for discharge home. He will be discharged on oral pain medications for a couple of days. He is advised to avoid high fat and high protein diet for next few days. He is also encouraged to exercise and lose weight to help with his high triglycerides. He needs to follow up with his primary care provider closely and may even need referral to an mental health orderly for further management of his hypertriglyceridemia. CT scan of the abdomen and pelvis done here did not show any calcification or other signs of chronic pancreatitis. On exam, patient is awake and alert. S1 and S2 normal. Breath sounds are normal. Abdomen is soft, tender in the epigastric region on deep palpation.
== END 2018-08-25 13:40 | disposition home or self-care (01) | DRG 282 ==
LOC: EMEROOARM 18:08 → 3BNU 18:08 → SUATTDRO 22:33 → 3BNU 22:41 → 3ANU 08-23 18:22
PROVIDERS: ADMIT Pediatrics; ATTEND Internal Medicine